=== PATIENT | male | born 1985 | race Caucasian/White ===

== ENCOUNTER 2016-12-10 21:11 | Emergency (ER) | payer MEDICAID ==
[~2016-12-10] VITALS: Ht 177.8 cm; Wt 68.0 kg
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
[2016-12-10] MEDS ORDERED: TDAP DIPH,PERTUSS,TET VAC/PF 0.5 ML DISP.SYRIN IM ONE ×2 (21:45→21:59)
--- NOTE | 2016-12-10 22:25 | NUR ---
Pt seen by MD. Pt given tetanus vaccine, no adverse reactions noted at this time. Wound to leg cleansed and simple drsg applied. Pt stable for discharge per MD. Pt given ACI. Pt verbalized understanding of dc instructions. Pt ambulated out of er with steady gait and ride home
[2016-12-10 22:28] VITALS: BP 130/75
== END 2016-12-10 22:28 | disposition home or self-care (01) ==
LOC: ER 21:12
DX: S80.812A Abrasion, left lower leg, initial encounter (principal); W45.8XXA Other foreign body or object entering through skin, initial encounter; Y93.89 Activity, other specified; Y92.89 Other specified places as the place of occurrence of the external cause; Y99.8 Other external cause status
CPT/HCPCS: 90471; 90715; 99283; A4663